=== PATIENT | female | born 1940 | race African-American/Black ===

== ENCOUNTER → 2017-09-25 | Outpatient (CLI) | payer OTHER ==
[~2017-09-25] MED LIST: ASPIRIN EC81 M1 PO; ASPIRIN81 MG PO; CRESTOR10 MG PO; FISHOIL PO; LIPITOR10 MG PO; PREMARIN0.625 MG PO; VITAMIN D1000 UNI1 PO; ZEBETA PO; ZESTORETIC 10-1 EACH PO; ZETIA10 MG PO; ZOFRAN ODT4 MG PO
== END ==
LOC: RAD 11:14
DX: R06.00 Dyspnea, unspecified (principal); Z88.6 Allergy status to analgesic agent; Z88.2 Allergy status to sulfonamides; Z88.0 Allergy status to penicillin; Z88.8 Allergy status to other drugs, medicaments and biological substances

== ENCOUNTER → 2019-09-01 | Outpatient (CLI) | payer OTHER | LOC: RAD 14:36 | DX: M76.61 Achilles tendinitis, right leg (principal); M25.571 Pain in right ankle and joints of right foot ==